=== PATIENT | female | born 1965 | race Caucasian/White ===

== ENCOUNTER 2016-09-21 12:43 | Emergency (ER) | payer SELFPAY ==
[~2016-09-21] VITALS: Wt 74.0 kg
[~2016-09-21 12:43] MED LIST: AMOX500C6 PO; LORA10CA PO
[2016-09-21] MEDS ORDERED: AZIT250T94 PO (14:24)
[2016-09-21] MEDS ORDERED: SODI30SP2 NS (14:25)
[2016-09-21] MEDS ORDERED: BEN25 PO (14:25)
[2016-09-21] MEDS ORDERED: ACET500C5 PO (14:25)
[2016-09-21] MEDS ORDERED: CETI10CA PO (14:25)
--- NOTE | 2016-09-21 15:10 | ERD ---
ER Documentation Chief Complaint Date/Time DATE: 09/21/16 TIME: 15:08 Chief Complaint COUGH, THROAT PAIN, CONGESTION HPI Patient is a 50-year-old female with no past medical history who presents to the ED with cough, congestion and sore throat and body aches 3 days. Denies fever or chills. Denies hemoptysis or night sweats. ROS All systems reviewed and are negative except as per history of present illness. Medications Home Meds Active Scripts Cetirizine Hcl* (Zyrtec*) 10 Mg Capsule, 10 MG PO DAILY, #10 TAB.CHEW Prov:KALIE BETTS-C 09/21/16 Sodium Chloride (Saline Nasal [place]) 30 Ml [place], 30 ML NS BID for 28 Days, SPRAY Prov:KALIE BETTS-C 09/21/16 Diphenhydramine Hcl* (Benadryl*) 25 Mg Cap, 25 MG PO Q6, #30 CAP Prov:KALIE BETTS-C 09/21/16 Acetaminophen* (Tylophen*) 500 Mg Capsule, 1 CAP PO Q6H Y for PAIN AND OR ELEVATED TEMP, #20 CAP Prov:KALIE BETTS-C 09/21/16 Azithromycin* (Zithromax*) 250 Mg Tablet, 250 MG PO .ZPACK DIRECTED, #6 TAB TAKE 500 MG (2 TABS) THE FIRST DAY THEN 250 MG (1 TAB) DAYS 2-5 Prov:KALIE BETTS PA-C 09/21/16 Reported Medications Loratadine* (Claritin*) 10 Mg Capsule, 10 MG PO DAILY 08/26/12 Amoxicillin* (Amoxil*) 500 Mg Capsule, 500 MG PO TID 08/26/12 Allergies Allergies: Coded Allergies: No Known Allergy (Unverified , 08/26/12) PMhx/Soc History of Surgery: No Anesthesia Reaction: No Hx Neurological Disorder: No Hx Respiratory Disorders: No Hx Cardiac Disorders: No Hx Psychiatric Problems: No Hx Miscellaneous Medical Probl: No Hx Alcohol Use: No Hx Substance Use: No Hx Tobacco Use: No FmHx Family History: No coronary disease, No diabetes, No other Physical Exam Vitals Vital Signs Date Time Temp Pulse Resp B/P Pulse Ox O2 Delivery O2 Flow Rate FiO2 09/21/16 12:46 98.2 78 17 165/70 96 Physical Exam GENERAL: Well-developed, well-nourished female. Appears in no acute distress. HEAD: Normocephalic, atraumatic. EYES: Pupils are equally reactive bilaterally. EOMs grossly intact. No conjunctival erythema. ENT: Moist mucous membranes. No uvula deviation. No kissing tonsils. No exudates. NECK: Supple. No lymphadenopathy or thyromegaly. No meningismus. negative kernig. negative brudinski. LUNG: Clear to auscultation bilaterally. No rhonchi, wheezing, rales or coarse breath sounds. HEART: Regular rate and rhythm. No murmurs, rubs or gallops. Extremities: Equal pulses bilaterally. No peripheral clubbing, cyanosis or edema. No unilateral leg swelling. NEUROLOGIC: Alert and oriented. Moving all four extremities. 5/5 strength in all extremities. Normal speech. Steady gait. SKIN: Normal color. Warm and dry. No rashes or lesions. Capillary refill < 2 seconds Procedures/MDM ER COURSE: I kept the patient and/or family informed of laboratory and diagnostic imaging results throughout the emergency room course. MEDICAL DECISION MAKING: This is a 50-year-old female with no past medical history who presents with cough, congestion and sore throat 3 days. Vital signs were reviewed. Patient is afebrile. Patient is not hypoxic. Patient is not toxic or ill-appearing. Patient's symptoms are consistent with URI, likely bacterial versus viral etiology. Patient does not show signs of respiratory distress and I do not think a chest x-ray is warranted at this time. She will be treated outpatient [facility] and does not need to be admitted at this time. Low suspicion for pneumonia , PE, pneumothorax, ACS, epiglottitis, obstruction, TB, pertussis, meningitis, sepsis. DISCHARGE: At this time, patient is stable for discharge and outpatient management with no new complaints during the ER course. Patient was sent home with azithromycin, saline nasal spray, Tylenol, Benadryl, Zyrtec patient will be discharged home with instructions to recheck for new or worsening symptoms such as fever, nausea , weakness, LOC and to follow up with primary care in the next 1-2 days. Patient was advised to return to the ER for any new or worsening symptoms. Plan was discussed and patient and/or family understands and agrees. Home instructions were given. Departure Diagnosis: Primary Impression: URI (upper respiratory infection) URI type: unspecified URI Qualified Code: J06.9 - Upper respiratory tract infection, unspecified type Condition: Stable Patient Instructions: Preventing Common Respiratory Infections Additional Instructions: Call your primary care doctor TOMORROW for an appointment during the next 1-2 days.See the doctor sooner or return here if your condition worsens before your appointment time. KALIE BETTS PA-C Sep 21, 2016 15:10
== END 2016-09-21 14:26 | disposition home or self-care (01) ==
LOC: E/R 12:43
DX: J06.9 Acute upper respiratory infection, unspecified (principal)
CPT/HCPCS: 99283

== ENCOUNTER 2017-04-27 18:08 | Emergency (ER) | END 2017-04-28 17:47 | disposition home or self-care (01) ==

== ENCOUNTER 2017-05-01 14:53 | Emergency (ER) | END 2017-05-01 18:12 | disposition home or self-care (01) ==